=== PATIENT | male | born 1960 | race Caucasian/White ===

== ENCOUNTER 2016-12-26 08:11 | Day surgery (SDC) | payer OTHER ==
[~2016-12-26] VITALS: Ht 172.7 cm; Wt 82.1 kg
[~2016-12-26 08:11] MED LIST: 0.9% Sodium Chloride 1,000 ML IV SCH; AMOX875T2 PO; PRAM0.754 PO; Sodium Chloride LOK Flush 10 mL Syringe IV PRN; fentaNYL-PF 50 mCg/mL 2 mL Inj IVPUSH PRN
[2016-12-26 08:21] VITALS: BP 147/87; PULSE 68; RESP 14; O2SAT 98
[2016-12-26 09:20] VITALS: BP 135/71; PULSE 59; RESP 16; O2SAT 96
[2016-12-26 09:30] VITALS: BP 141/84; PULSE 74; RESP 16; O2SAT 100
[2016-12-26 09:40] VITALS: BP 146/91; PULSE 62; RESP 16; O2SAT 100
--- NOTE | 2016-12-26 21:30 | ENDO ---
[address] [address] ENDOSCOPY PROCEDURE PATIENT: BEN SCHREIBER : 1960 MR#: [id number] ADMIT: 12/26/2016 JOB ID: [id number] PRIMARY PROVIDER: Sandi Dowling PA-C. PROCEDURES: Colonoscopy with hot snare polypectomy, biopsy, and tattoo placement. INDICATIONS: This is a 56-year-old male who reports for colon cancer screening. EQUIPMENT: [employer]-H180AL. SEDATION: 5 mg Versed and 100 mcg fentanyl. COMPLICATIONS: None identified. BOWEL PREPARATION: Excellent. PROCEDURE INFORMATION: After the risks and benefits were explained, written and verbal informed consent was obtained, the patient was brought into the endoscopy suite and placed into the left lateral decubitus position. Sedation was achieved using the above-stated medications with the addition of oxygen via nasal cannula. A digital rectal examination was accomplished. Mild internal hemorrhoids appreciated. The scope was introduced into the rectum and advanced under direct visualization to the level of the cecum, as identified by the appendiceal orifice and ileocecal valve. The scope was slowly withdrawn to carefully examine the mucosa for any defects or lesions. Retroflexed views were accomplished in the rectum. The colon was decompressed. The scope removed from the patient who tolerated the procedure well. FINDINGS: In the sigmoid and ascending colon, there were two small polyps removed with hot snare. One of these was about 5 mm, the other one approximately is 7 mm. In the rectum, there was an approximately 8-9 mm sessile polyp removed with hot snare. In the transverse colon, at about 55 cm from the anal verge, there was an irregular, large, firm but not ulcerated mass structure. This polypoid structure appeared to involve approximately half the circumference of the lumen but the was not obstructing, and it was easy for me to get the scope past. It did not look as though I could safely attempt to remove all of this endoscopically. It was somewhat firm under the biopsy forceps, and I elected to take a histopathology sample with cold forceps and we placed an approximately 1 mL Anabel ink tattoo immediately adjacent the lesion. Multiple photographs were taken. Maximum size of this polyp was judged to be perhaps somewhere in the neighborhood of about 3.5 cm. Retroflexed views from within the rectum disclosed internal hemorrhoids with hypertrophied anal papilla. ENDOSCOPIC DIAGNOSES: 1. Irregular transverse colon polypoid mass lesion. 2. Colon polyps. 3. Hemorrhoids. RECOMMENDATIONS: 1. Await histopathology. 2. CAT scan and a CEA level are requested. 3. Surgical consultation is requested. 4. Even if histology proves benign, this polyp did not appear to be safe to attempt endoscopic resection. I think the patient will, unfortunately, require a segmental transverse colectomy.
--- NOTE | 2016-12-28 13:30 | PATH ---
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 3.RECTAL POLYP: POLYPOID MIXED TUBULAR AND VILLIFORM ADENOMA. ICD10 CODE D12.0 NOTE: The results of this evaluation are discussed with Dr. Vincenzo Martinez at 12:50 p.m. on 12/28/16. GROSS DESCRIPTION: The specimens are received in formalin, labeled with the patient's name, and sublabeled as the following: (1) colon polyps; (2) mass @ 55; (3) rectal polyps. (1) The specimen consists of 2 cochran-white rubbery semi-translucent sessile polyps (polyp #1-0.5 x 0.2 x 0.1 cm; polyp #2-0.4 x 0.4 x 0.2 cm). Ink code: black-resection margin. Section code: (1A) polyp #1, bisected; (1B) polyp #2, bisected. Specimen entirely submitted. (2) The specimen consists of 2 cochran-white rubbery semi-translucent fragments of tissue (0.2 x 0.2 x 0.2 cm and 0.3 x 0.2 x 0.1 cm). Section code: (2A) 2 intact tissue fragments. Specimen entirely submitted. (3) The specimen consists of a cochran rubbery sessile (0.7 x 0.6 x 0.5 cm). Ink code: black-resection margin. Section code: (3A) polyp, bisected. Specimen entirely submitted. 12/27/16 JM MICRO DESCRIPTION: See diagnosis. ICD-9 CODES: CPT CODES: 1: 40896 2: 30994 3: 60031 Electronically Signed Out Vincenzo Gifford MD [facility] [address], [place] [address] Technical component performed at [facility], [address], [place], [address]
== END 2016-12-26 23:59 | disposition home or self-care (01) ==
LOC: END 08:11
PROVIDERS: ATTEND Internal Medicine Gastroenterology
DX: Z12.11 Encounter for screening for malignant neoplasm of colon (principal); D12.2 Benign neoplasm of ascending colon; D12.5 Benign neoplasm of sigmoid colon; D12.8 Benign neoplasm of rectum; K64.8 Other hemorrhoids; K62.89 Other specified diseases of anus and rectum; G25.81 Restless legs syndrome; F41.8 Other specified anxiety disorders
CPT/HCPCS: 45380; 45381; 45385; 99153; G0500; J2250; J3010; J7030